=== PATIENT | female | born 1960 | race Caucasian/White ===

== ENCOUNTER 2024-01-18 14:07 | Emergency (ER) | payer MEDICARE ==
[~2024-01-18] VITALS: Ht 157.5 cm; Wt 72.6 kg
[2024-01-18 14:44] VITALS: BP 153/109; PULSE 90; RESP 18; TEMP 98.7
[2024-01-18 15:49] LABS: BASOPHILS # (AUTO) 0.06 K/uL (0.00-0.20); BASOPHILS % (AUTO) 0.5 % (0.0-5.0); EOSINOPHILS # (AUTO) 0.24 K/uL (0.00-0.70); EOSINOPHILS % (AUTO) 2.1 % (0.0-8.0); HEMATOCRIT 43.1 % (36-48); IMMATURE GRANULOCYTE ABSOLUTE 0.05 K/uL (0-1); LYMPHOCYTES # (AUTO) 1.7 K/uL (1.0-4.8); LYMPHOCYTES % (AUTO) 14.8 % (21.0-51.0); MEAN CORPUSCULAR HEMOGLOBIN 28.9 pg (27.0-33.0); MEAN CORPUSCULAR HGB CONC 32.5 g/dL (32.0-36.0); MONOCYTES # (AUTO) 1.2 K/uL (0.1-1.0); MONOCYTES % (AUTO) 10.2 % (3.0-13.0); NEUTROPHILS # (AUTO) 8.1 K/uL (1.8-7.7); PLATELET COUNT (AUTO) 353 K/uL (130-400); RED BLOOD CELL COUNT(AUTO) 4.84 MIL/uL (4.00-5.50); RED CELL DISTRIBUTION WIDTH 14.3 % (11.0-15.5); WHITE BLOOD COUNT (AUTO) 11.3 K/uL (4.8-10.8)
[2024-01-18 16:02] LABS: CREATININE 0.8 mg/dL (0.5-1.0); POTASSIUM 3.9 mmol/L (3.5-5.1)
--- NOTE | 2024-01-18 16:32 | ERN ---
General Chief Complaint: Abdominal Pain Stated Complaint: POSSIBLE DIVERTICULITIS Time Seen by MD: 14:08 Time Seen by Midlevel: 14:08 Source: patient History of Present Illness Initial Comments Patient is a 64-year-old female with a past medical history of diverticulitis presenting to the emergency department with left lower quadrant abdominal pain that started two days ago. No nausea, vomiting, diarrhea, bloody stools, fever, or chills are reported. Patient was unsure if she had potentially pulled a muscle or if it was beginning of a diverticulitis flare-up. Denies any other symptoms at this time. Allergies: Coded Allergies: codeine (Unverified Allergy, Unknown, 01/18/24) Home Meds Active Scripts Ketorolac Tromethamine (Ketorolac Tromethamine) 10 Mg Tablet, 10 MG PO BID for 5 Days, #10 TAB Prov:ISRAEL GUILLORY 01/18/24 Amoxicillin/Potassium Clav (Amox Tr-K Clv 875-125 mg Tab) 875 Mg-125 Mg Tablet, 1 EACH PO TID for 5 Days, #15 TAB 0 Refills Prov:ISRAEL GUILLORY 01/18/24 Past Medical History Past Medical History: Hypothyroid, Other Medical History Other: DIVERTICULITIS Past Surgical History: Appendectomy, Hysterectomy, Cholecystectomy, Other Surgical History Other: THYROIDECTOMY ROS Dictation CONSTITUTIONAL: Negative except for HPI HEAD/FACE: Negative except for HPI EENT: Negative except for HPI RESPIRATORY: Negative except for HPI GASTROINTESTINAL/ABDOMINAL: Negative except for HPI GENITOURINARY: Negative except for HPI MUSCULOSKELETAL: Negative except for HPI INTEGUMENTARY: Negative except for HPI NEUROLOGICAL/PSYCH: Negative except for HPI HEMATOLOGIC/LYMPHATIC: Negative except for HPI All Systems Negative, Except as noted above. 13 point review of systems assessed and all negative except for above. Physical Exam Physical Exam Dictation Vital Signs reviewed General Appearance: Alert, oriented x 3, no acute distress, well developed, nourished. Head and Face: non-traumatic. Eyes: PERRL, pink conjunctivas, eyelid no trauma, anterior chamber with arcus senilis. Ears: Pinnas intact and no signs of trauma or erythema ear canals clear and no discharge TM no erythema Nose: No discharge, no bleeding. Oropharynx: Mouth normal, tongue pink, pharynx clear,no erythema, tonsils no exudates, no abscesses noted, mucous membrane moist Neck: Supple, non-tender, no thyromegaly, no masses, no JVD, no bruits Breast:Deferred Chest:No tenderness, no crepitus, no paradoxical movement, no retractions Lungs:Clear, well-ventilated, symmetric, no rales, no wheezing, no rhonchi, no stridor, good breath sounds bilaterally Heart: Regular rate, regular rhythm, no murmur, no gallops Vascular: no peripheral edema, Abdomen: Soft, positive bowel sounds, nondistended, no guarding, Left lower quadrant abdominal tenderness, no rebound, no masses no hepatomegaly, no splenomegaly, no Wyatt's sign, no hernias. Rectal: Deferred Genital: Deferred Neurological: Normal speech, motor function intact, sensory function intact Musculoskeletal: Neck nontender, full range of motion, back nontender, full range of motion, Extremities: nontender, full range of motion Skin: Color pink, dry, no turgor, no rash, no lacerations, no abrasions, no contusions. Lymphatic: Deferred Results Laboratory and Microbiology Lab and Micro Result Laboratory Tests Test 01/18/24 15:33 White Blood Count 11.3 K/uL (4.8-10.8) H Red Blood Count 4.84 MIL/uL (4.00-5.50) Hemoglobin 14.0 g/dL (12.0-16.0) Hematocrit 43.1 % (36-48) Mean Corpuscular Volume 89.0 fL (79-99) Mean Corpuscular Hemoglobin 28.9 pg (27.0-33.0) Mean Corpuscular Hemoglobin Concent 32.5 g/dL (32.0-36.0) Red Cell Distribution Width 14.3 % (11.0-15.5) Platelet Count 353 K/uL (130-400) Mean Platelet Volume 9.0 fL (7.5-10.5) Immature Granulocyte % (Auto) 0.4 % (0-1) Neutrophils (%) (Auto) 72.0 % (40.0-77.0) Lymphocytes (%) (Auto) 14.8 % (21.0-51.0) L Monocytes (%) (Auto) 10.2 % (3.0-13.0) Eosinophils (%) (Auto) 2.1 % (0.0-8.0) Basophils (%) (Auto) 0.5 % (0.0-5.0) Neutrophils # (Auto) 8.1 K/uL (1.8-7.7) H Lymphocytes # (Auto) 1.7 K/uL (1.0-4.8) Monocytes # (Auto) 1.2 K/uL (0.1-1.0) H Eosinophils # (Auto) 0.24 K/uL (0.00-0.70) Basophils # (Auto) 0.06 K/uL (0.00-0.20) Absolute Immature Granulocyte (auto 0.05 K/uL (0-1) Nucleated Red Blood Cells 0.0 % (0.0-0.19) Sodium Level 137 mmol/L (136-145) Potassium Level 3.9 mmol/L (3.5-5.1) Chloride Level 101 mmol/L (101-111) Carbon Dioxide Level 31 mmol/L (21-32) Blood Urea Nitrogen 12 mg/dL (7-18) Creatinine 0.8 mg/dL (0.5-1.0) Glomerular Filtration Rate Calc 82 mL/min (>90) Random Glucose 100 mg/dL (70-105) Lactic Acid Level 1.4 mmol/L (0.8-2.5) Total Calcium 9.7 mg/dL (8.5-10.1) Labs Reviewed?: Yes MDM MDM: Patient is a 64-year-old female with a past medical history of diverticulitis presenting to the emergency department with left lower quadrant abdominal pain that started two days ago. No nausea, vomiting, diarrhea, bloody stools, fever, or chills are reported. Patient was unsure if she had potentially pulled a muscle or if it was beginning of a diverticulitis flare-up. Denies any other symptoms at this time. On physical examination patient is in no acute distress. She has some mild left lower quadrant abdominal tenderness but no rebound or guarding. She is afebrile and nontoxic appearing. Her initial vital signs are remarkable for a temperature of 98.8. A heart rate of 90 beats per minute. A blood pressure of 153/109. A pulse oximetry of 99% on room air. Her CBC shows a slight leukocytosis with a left shift. White blood cell count is 11.3. Her platelets are normal at 353 and her hemoglobin is stable at 14.0. Her chemistries are unremarkable. A CT scan of the abdomen and pelvis with contrast was ordered and is remarkable for sigmoid colon wall thickening with adjacent fat stranding which is suggestive of acute sigmoid diverticulitis. There was no focal abscess or perforation noted. Lab and imaging were discussed with the patient. Patient was given 1 g of Rocephin IV and will be discharged home on antibiotics. She was offered Cipro and Flagyl but states the combination of this medication makes her feel very sick so she would prefer a different antibiotic. Patient will be discharged home with a prescription for Augmentin for acute uncomplicated diverticulitis. Patient was advised to follow up with your primary care doctor in 24-48 hours or return to the ER if she develops any new or worsening symptoms. Patient agrees and is comfortable with plan for discharge. All questions have been answered. Differential diagnosis: Acute diverticulitis, bowel perforation, small-bowel obstruction There are no social concerns with this patient. Prescription drug management Prescriptions will include: Augmentin and Toradol Medical management and examination interpretation discussions were had by me with other qualified healthcare professionals as indicated for the patient's care. ED Course Orders Procedure Category Date Status Time Cbc With Differential LAB 01/18/24 Complete 15:09 Basic Metabolic Panel LAB 01/18/24 Complete 15:09 Lactic Acid LAB 01/18/24 Complete 15:09 Ct Abdomen/Pelvis CT 01/18/24 Resulted W/Contrast 15:09 Ketorolac PHA 01/18/24 Complete Tromethamine 15mg/Ml 18:00 Iohexol (Omnipaque) PHA 01/18/24 Complete 18:58 Ceftriaxone 1g Vial PHA 01/18/24 Complete (Rocephine 1g Inj) 20:30 Current Medications Medications (Trade) Dose Ordered Sig/Michael Route PRN Reason Start Time Stop Time Status Last Admin Dose Admin Ceftriaxone Sodium (ROCEphine 1G INJ) 1 gm ONCE ONCE IVPB 01/18/24 20:30 01/18/24 20:31 DC 01/18/24 21:06 Iohexol (Omnipaque) 35,000 mg STK-MED ONCE IV 01/18/24 18:58 01/18/24 18:58 DC Ketorolac Tromethamine (toRADol) 15 mg ONCE ONCE IV 01/18/24 18:00 01/18/24 18:01 DC 01/18/24 18:43 Vital Signs Date Time Temp Pulse Resp B/P (MAP) Pulse Ox O2 Delivery O2 Flow Rate FiO2 01/18/24 14:44 98.8 90 18 153/109 99 Room Air 0 [facility] [address] [place] [address] IMAGING REPORT Signed PATIENT: BHAVNA LLOYD MR#: [id number] : 1960 SEX: F AGE: 64 LOCATION: [facility] ORDER 1510 STATUS: REG ER REPORT#: [id number] SERVICE 1509 REASON: LLQ ABD PAIN HX OF DIVERTICULITIS ORDERING PHYSICIAN: ISRAEL GUILLORY PROCEDURE: ABD PEL W - CT ABDOMEN/PELVIS W/CONTRAST CT ABDOMEN/PELVIS W/CONTRAST HISTORY: Abdominal pain COMPARISON: None TECHNIQUE: Multiple sequential axial images of the abdomen and pelvis were obtained from the dome of the diaphragm through symphysis pubis. Patient was given Omnipaque through intravenous route. Oral contrast was not given. FINDINGS: No pleural effusion is seen bilaterally. There is no evidence of parenchymal disease or pulmonary nodule of the visualized lower lungs. Degenerative changes of the thoracolumbar spine are present. The heart is not enlarged. Liver is enlarged with fatty changes measuring 17 cm. Postcholecystectomy changes are seen. The liver, spleen, adrenal glands and pancreas are unremarkable. There is no evidence of hydronephrosis bilaterally. No evidence of renal stone is seen. Fecal material is seen in the colon. There are normal size retroperitoneal and mesenteric lymph nodes. No ascites is seen. Atherosclerotic changes are present. There is sigmoid colon wall thickening with adjacent fat stranding suggestive of acute sigmoid diverticulitis. No focal abscess is seen. Appendix is not well seen limiting evaluation. Pelvic sidewalls are symmetric bilaterally. Bladder is well distended without wall thickening. IMPRESSION: 1. There is sigmoid colon wall thickening with adjacent fat stranding suggestive of acute sigmoid diverticulitis. No focal abscess is seen. CT was performed with one or more following dose reduction techniques: automated exposure control, adjustment of the mA and kv according to patient's size, or use of a iterative reconstruction technique. DICTATED BY: PATRICIA ELDRIDGE MD DATE: 01/18/241925 ELECTRONICALLY SIGNED BY: PATRICIA ELDRIDGE MD DATE: 01/18/241932 DX & DISP Disposition: Discharge Departure Impression: Primary Impression: Diverticulitis Condition: Stable Scripts Ketorolac Tromethamine (Ketorolac Tromethamine) 10 Mg Tablet 10 MG PO BID for 5 Days, #10 TAB Prov: ISRAEL GUILLORY 01/18/24 Amoxicillin/Potassium Clav (Amox Tr-K Clv 875-125 mg Tab) 875 Mg-125 Mg Tablet 1 EACH PO TID for 5 Days, #15 TAB 0 Refills Prov: ISRAEL GUILLORY 01/18/24 Additional Instructions: Your blood work today is stable. Your CT scan of the abdomen and pelvis with contrast reveals diverticulitis. I have given you a prescription for Augmentin for the next five days. Follow up with your primary care doctor in 2-3 days for repeat evaluation. Return to the ER for any new or worsening symptoms Time of Disposition: 20:09 I have reviewed the case, and I agree with, Diagnosis and Plan ISRAEL GUILLORY Jan 18, 2024 16:32 CODEY BESS DO Jan 20, 2024 09:06
[2024-01-18] MEDS: ketOROlac 15MG/ML VIAL (15MG/ML) IV ONE (18:43)
[2024-01-18] MEDS ORDERED: IOHEXOL 350 MG/ML 100ML INFUS..BTL IV ONE (18:58)
--- NOTE | 2024-01-18 19:33 | HMCIMG ---
CT ABDOMEN/PELVIS W/CONTRAST HISTORY: Abdominal pain COMPARISON: None TECHNIQUE: Multiple sequential axial images of the abdomen and pelvis were obtained from the dome of the diaphragm through symphysis pubis. Patient was given Omnipaque through intravenous route. Oral contrast was not given. FINDINGS: No pleural effusion is seen bilaterally. There is no evidence of parenchymal disease or pulmonary nodule of the visualized lower lungs. Degenerative changes of the thoracolumbar spine are present. The heart is not enlarged. Liver is enlarged with fatty changes measuring 17 cm. Postcholecystectomy changes are seen. The liver, spleen, adrenal glands and pancreas are unremarkable. There is no evidence of hydronephrosis bilaterally. No evidence of renal stone is seen. Fecal material is seen in the colon. There are normal size retroperitoneal and mesenteric lymph nodes. No ascites is seen. Atherosclerotic changes are present. There is sigmoid colon wall thickening with adjacent fat stranding suggestive of acute sigmoid diverticulitis. No focal abscess is seen. Appendix is not well seen limiting evaluation. Pelvic sidewalls are symmetric bilaterally. Bladder is well distended without wall thickening. IMPRESSION: 1. There is sigmoid colon wall thickening with adjacent fat stranding suggestive of acute sigmoid diverticulitis. No focal abscess is seen. CT was performed with one or more following dose reduction techniques: automated exposure control, adjustment of the mA and kv according to patient's size, or use of a iterative reconstruction technique.
[2024-01-18] MEDS ORDERED: AMOX1TAB16 PO (20:11)
[2024-01-18] MEDS ORDERED: KETO10TA2 PO (20:11)
[2024-01-18] MEDS: cefTRIAXone 1G VIAL IVPB ONE (21:06)
== END 2024-01-18 21:35 | disposition home or self-care (01) ==
LOC: EDH 14:07
DX: K57.32 Diverticulitis of large intestine without perforation or abscess without bleeding (principal); E03.9 Hypothyroidism, unspecified; Z88.5 Allergy status to narcotic agent; Z90.49 Acquired absence of other specified parts of digestive tract; Z90.710 Acquired absence of both cervix and uterus
CPT/HCPCS: 99285; 74177; 96374; 96375; 80048; 85025; 83605; 36415; J0696; J1885; Q9967